=== PATIENT | female | born 1935 | race Caucasian/White ===

== ENCOUNTER 2017-03-20 09:07 | Day surgery (SDC) | payer MEDICARE ==
[~2017-03-20] VITALS: Ht 160 cm; Wt 63.0 kg
[~2017-03-20 09:07] MED LIST: ALEN70 PO; ALPHA LIPOIC ACID PO; ASCO500; ASPI325 PO; Bactrim Ds Tab1 EACH PO; CHOL10002 PO; ELIQUIS5 MG PO; Ferrous Sulfat325 M2 PO; HYDCHL25 PO; INSLI100I SC; INSULANI SC; INSULANPEN SC; IRBE150 PO; NEBI5 PO; Neurontin300 MG PO; Novolog100 UNIT/2 SC; PIOG30 PO; SIMV40 PO; SITA100T2 PO; TRAM50 PO; TRAZ50 PO; XARELTO20 MG PO
[2017-05-23] MEDS ORDERED: Pataday2.5 ML BOTHEYES (10:42)
== END 2017-03-20 23:59 | disposition home or self-care (01) ==
LOC: ORSCMMR 09:07
PROVIDERS: Internal Medicine Gastroenterology
PROC: 0DBP8ZX Excision of Rectum, Via Natural or Artificial Opening Endoscopic, Diagnostic (ICD-10-PCS; principal; 2017-03-20 10:30)
PROC: 3E0H8GC Introduction of Other Therapeutic Substance into Lower GI, Via Natural or Artificial Opening Endoscopic (ICD-10-PCS; principal; 2017-03-20 10:30)
PROC: 0DBM8ZX Excision of Descending Colon, Via Natural or Artificial Opening Endoscopic, Diagnostic (ICD-10-PCS; principal; 2017-03-20 10:30)
PROC: 0DB98ZX Excision of Duodenum, Via Natural or Artificial Opening Endoscopic, Diagnostic (ICD-10-PCS; principal; 2017-03-20 10:30)
PROC: 0DB68ZX Excision of Stomach, Via Natural or Artificial Opening Endoscopic, Diagnostic (ICD-10-PCS; principal; 2017-03-20 10:30)
DX: D50.0 Iron deficiency anemia secondary to blood loss (chronic) (principal); K29.80 Duodenitis without bleeding; K44.9 Diaphragmatic hernia without obstruction or gangrene; K62.1 Rectal polyp; C18.6 Malignant neoplasm of descending colon; Z86.010 Personal history of colon polyps; I48.0 Paroxysmal atrial fibrillation; I10 Essential (primary) hypertension; E11.9 Type 2 diabetes mellitus without complications; Z79.4 Long term (current) use of insulin; Z79.899 Other long term (current) drug therapy
CPT/HCPCS: 82947; 88305; 88342; J2250; J3010; J7120

== ENCOUNTER 2017-04-06 15:55 | Inpatient (IN) | payer MEDICARE ==
[~2017-04-06] VITALS: Ht 165.1 cm; Wt 61.2 kg
[2017-04-16] MEDS ORDERED: ALPHA LIPOIC A200 M1 PO (10:11)
[2017-04-16] MEDS ORDERED: NEBI5 PO (10:13)
[2017-04-16] MEDS ORDERED: FERROUS SULFATE PO (10:17)
[2017-04-16] MEDS ORDERED: ALEN70 PO (10:18)
[2017-04-16] MEDS ORDERED: GABA300 PO (10:18)
[2017-04-16] MEDS ORDERED: Humalog100 UNIT/1 SC (10:19)
[2017-04-16] MEDS ORDERED: SITA100T2 PO (10:20)
[2017-04-16] MEDS ORDERED: INSULANPEN SC (10:20)
[2017-04-16] MEDS ORDERED: SIMV40 PO (10:20)
[2017-04-16] MEDS ORDERED: TRAM50 PO (10:21)
[2017-04-16] MEDS ORDERED: Tylenol325 MG PO (10:22)
[2017-04-16] MEDS ORDERED: Desyrel50 MG PO (10:22)
[2017-04-16] MEDS ORDERED: Vitamin C100 M1 PO (10:23)
[2017-04-16] MEDS ORDERED: Vitamin D2000 UNIT PO (10:23)
[2017-04-25 04:53] LABS: BASOPHILS ABSOLUTE AUTO 0.02 K/mm3 (0.00-0.23); BASOPHILS PERCENT AUTO 0 % (0-2); EOSINOPHILS PERCENT AUTO 0 % (0-6); Hematocrit 34.3 % (33.0-51.0); Hemoglobin 10.7 g/dL (11.5-16.0); IMMATURE GRAN ABSOLUTE AUTO 0.04 K/mm3 (0.00-0.10); IMMATURE GRAN PERCENT AUTO 0 % (0-1); LYMPHOCYTES ABSOLUTE AUTO 1.45 K/mm3 (0.84-5.20); LYMPHOCYTES PERCENT AUTO 11 % (21-46); MONOCYTES ABSOLUTE AUTO 1.32 K/mm3 (0.16-1.47); MONOCYTES PERCENT AUTO 10 % (4-13); Mean Corpuscular HGB 26.8 pg (26.0-34.0); Mean Corpuscular HGB Conc 31.2 g/dL (31.5-36.5); Mean Corpuscular Volume 86 fL (80-100); Mean Platelet Volume 11.7 fL (9.1-12.4); NEUTROPHILS ABSOLUTE AUTO 10.42 K/mm3 (1.96-9.15); NEUTROPHILS PERCENT AUTO 79 % (41-73); Platelet Count 166 K/mm3 (150-400); RDW Coefficient Variation 16.5 % (11.7-14.2); RDW Standard Deviation 52.1 fL (35.1-46.3); Red Blood Cell Count 3.99 M/mm3 (3.80-5.20); White Blood Cell Count 13.25 K/mm3 (4.00-11.30)
[2017-04-25 05:24] LABS: Anion Gap 9 mmol/L (6-16); Blood Urea Nitrogen 17 mg/dL (8-24); CO2, Blood 26 mmol/L (21-32); Calcium, Blood 7.7 mg/dL (8.5-10.1); Chloride, Blood 106 mmol/L (98-108); Creatinine, Blood 0.68 mg/dL (0.40-1.00); Glomerular Filtration Rate >60 (60-); Glucose, Blood 222 mg/dL (70-99); Potassium, Blood 4.1 mmol/L (3.5-5.5); Sodium, Blood 141 mmol/L (136-145)
[2017-04-27 15:13] LABS: Hematocrit 30.9 % (33.0-51.0); Hemoglobin 9.6 g/dL (11.5-16.0)
[2017-04-29 09:36] LABS: BASOPHILS ABSOLUTE AUTO 0.02 K/mm3 (0.00-0.23); BASOPHILS PERCENT AUTO 0 % (0-2); EOSINOPHILS ABSOLUTE AUTO 0.25 K/mm3 (0.00-0.68); EOSINOPHILS PERCENT AUTO 3 % (0-6); Hemoglobin 8.3 g/dL (11.5-16.0); IMMATURE GRAN ABSOLUTE AUTO 0.04 K/mm3 (0.00-0.10); IMMATURE GRAN PERCENT AUTO 1 % (0-1); LYMPHOCYTES ABSOLUTE AUTO 1.53 K/mm3 (0.84-5.20); LYMPHOCYTES PERCENT AUTO 20 % (21-46); MONOCYTES ABSOLUTE AUTO 0.64 K/mm3 (0.16-1.47); MONOCYTES PERCENT AUTO 8 % (4-13); Mean Corpuscular HGB 26.9 pg (26.0-34.0); Mean Corpuscular HGB Conc 30.7 g/dL (31.5-36.5); Mean Corpuscular Volume 87 fL (80-100); Mean Platelet Volume 10.9 fL (9.1-12.4); NEUTROPHILS ABSOLUTE AUTO 5.18 K/mm3 (1.96-9.15); NEUTROPHILS PERCENT AUTO 68 % (41-73); Platelet Count 171 K/mm3 (150-400); RDW Coefficient Variation 16.1 % (11.7-14.2); Red Blood Cell Count 3.09 M/mm3 (3.80-5.20); White Blood Cell Count 7.66 K/mm3 (4.00-11.30)
[2017-04-29 09:53] LABS: Anion Gap 6 mmol/L (6-16); Blood Urea Nitrogen 16 mg/dL (8-24); Bun/Creatinine Ratio 26.7 (12.0-20.0); CO2, Blood 31 mmol/L (21-32); Calcium, Blood 8.4 mg/dL (8.5-10.1); Chloride, Blood 104 mmol/L (98-108); Glomerular Filtration Rate >60 (60-); Glucose, Blood 155 mg/dL (70-99); Magnesium, Blood 1.8 mg/dL (1.6-2.4); Phosphorus, Blood 4.1 mg/dL (2.5-4.9); Potassium, Blood 3.8 mmol/L (3.5-5.5); Sodium, Blood 141 mmol/L (136-145)
[2017-04-29] MEDS ORDERED: HYDR1TAB94 PO (12:37)
[2017-04-29] MEDS ORDERED: DOCU100 PO (12:41)
[2017-05-23] MEDS ORDERED: Pataday2.5 ML BOTHEYES (10:42)
== END 2017-04-29 14:04 | disposition home or self-care (01) | DRG 330 ==
LOC: SURS 04-24 07:36 → PRE IP 04-24 09:30 → SURS 04-24 13:47
PROVIDERS: Surgery
PROC: 3E0234Z Introduction of Serum, Toxoid and Vaccine into Muscle, Percutaneous Approach (ICD-10-PCS; 2017-04-24)
PROC: 0DTG0ZZ Resection of Left Large Intestine, Open Approach (ICD-10-PCS; principal; 2017-04-24 09:30)
DX: C18.5 Malignant neoplasm of splenic flexure (principal); R44.3 Hallucinations, unspecified; I48.0 Paroxysmal atrial fibrillation; E11.9 Type 2 diabetes mellitus without complications; G89.29 Other chronic pain; M54.5 Low back pain; I10 Essential (primary) hypertension; E78.5 Hyperlipidemia, unspecified; Z23 Encounter for immunization; R33.9 Retention of urine, unspecified
CPT/HCPCS: 36415; 74018; 80048; 82947; 83735; 84100; 85014; 85018; 85025; 88309; J0295; J1100; J1650; J1815; J1817; J1885; J2250; J2370; J2405; J2710; J3010; J7120

== ENCOUNTER 2017-05-25 06:40 | Day surgery (SDC) | END 2017-05-25 23:28 | disposition home or self-care (01) ==

== ENCOUNTER → 2017-06-26 | Outpatient (CLI) | payer MEDICARE ==
[~2017-06-26] MED LIST changes: +ALPHA LIPOIC A200 M1 PO; +DOCU100 PO; +Desyrel50 MG PO; +FERROUS SULFATE PO; +GABA300 PO; +HYDR1TAB94 PO; +Humalog100 UNIT/1 SC; +Pataday2.5 ML BOTHEYES; +Tylenol325 MG PO; +Vitamin C100 M1 PO; +Vitamin D2000 UNIT PO
[2017-06-26 11:22] LABS: BASOPHILS ABSOLUTE AUTO 0.02 K/mm3 (0.00-0.23); BASOPHILS PERCENT AUTO 0 % (0-2); EOSINOPHILS ABSOLUTE AUTO 0.06 K/mm3 (0.00-0.68); EOSINOPHILS PERCENT AUTO 1 % (0-6); Hematocrit 36.8 % (33.0-51.0); Hemoglobin 11.6 g/dL (11.5-16.0); IMMATURE GRAN ABSOLUTE AUTO 0.01 K/mm3 (0.00-0.10); IMMATURE GRAN PERCENT AUTO 0 % (0-1); LYMPHOCYTES ABSOLUTE AUTO 0.79 K/mm3 (0.84-5.20); LYMPHOCYTES PERCENT AUTO 12 % (21-46); MONOCYTES ABSOLUTE AUTO 0.85 K/mm3 (0.16-1.47); MONOCYTES PERCENT AUTO 13 % (4-13); Mean Corpuscular HGB 28.8 pg (26.0-34.0); Mean Corpuscular HGB Conc 31.5 g/dL (31.5-36.5); Mean Corpuscular Volume 91 fL (80-100); Mean Platelet Volume 11.7 fL (9.1-12.4); NEUTROPHILS ABSOLUTE AUTO 4.74 K/mm3 (1.96-9.15); NEUTROPHILS PERCENT AUTO 73 % (41-73); Platelet Count 113 K/mm3 (150-400); RDW Coefficient Variation 16.1 % (11.7-14.2); RDW Standard Deviation 52.9 fL (35.1-46.3); Red Blood Cell Count 4.03 M/mm3 (3.80-5.20); White Blood Cell Count 6.47 K/mm3 (4.00-11.30)
[2017-06-26 11:33] LABS: Alanine Aminotransfer (ALT/SGP 15 U/L (12-78); Albumin, Blood 2.8 g/dL (3.4-5.0); Albumin/Globulin Ratio 0.9 (0.8-1.8); Alk Phos 60 U/L (50-136); Anion Gap 5 mmol/L (6-16); Aspartate Aminotrans (AST/SGOT 12 U/L (12-37); Bilirubin, Total 0.3 mg/dL (0.1-1.0); Blood Urea Nitrogen 15 mg/dL (8-24); Bun/Creatinine Ratio 25.3 (12.0-20.0); CO2, Blood 32 mmol/L (21-32); Calcium, Blood 8.3 mg/dL (8.5-10.1); Chloride, Blood 104 mmol/L (98-108); Creatinine, Blood 0.59 mg/dL (0.40-1.00); Globulin, Blood 3.2 g/dL (2.2-4.0); Glomerular Filtration Rate >60 (60-); Glucose, Blood 222 mg/dL (70-99); Potassium, Blood 4.4 mmol/L (3.5-5.5); Sodium, Blood 141 mmol/L (136-145)
== END | disposition home or self-care (01) ==
LOC: LAB 10:53 → LAB SHORT 10:53
PROVIDERS: Internal Medicine Hematology & Oncology
DX: C18.6 Malignant neoplasm of descending colon (principal); C77.2 Secondary and unspecified malignant neoplasm of intra-abdominal lymph nodes; D50.9 Iron deficiency anemia, unspecified
CPT/HCPCS: 80053; 85025

== ENCOUNTER 2017-08-30 09:54 | Emergency (ER) | payer MEDICARE ==
[~2017-08-30] VITALS: Ht 157.5 cm; Wt 58.1 kg
== END 2017-08-30 10:30 | disposition home or self-care (01) ==
LOC: ER 09:54
DX: S61.012A Laceration without foreign body of left thumb without damage to nail, initial encounter (principal); W31.89XA Contact with other specified machinery, initial encounter; Z88.8 Allergy status to other drugs, medicaments and biological substances; Z79.899 Other long term (current) drug therapy; Z79.4 Long term (current) use of insulin; E11.9 Type 2 diabetes mellitus without complications; I10 Essential (primary) hypertension; Z87.891 Personal history of nicotine dependence
CPT/HCPCS: 90714; 99282

== ENCOUNTER → 2017-11-14 | Outpatient (CLI) | payer MEDICARE ==
[2017-11-15 10:17] LABS: Adenovirus F 40/41 Not Detected (NOT DETECT); Astrovirus Not Detected (NOT DETECT); Campylobacter Sp Not Detected (NOT DETECT); Cryptosporidium Not Detected (NOT DETECT); Cyclospora Cayetanensis Not Detected (NOT DETECT); E. Coli O157 Not Detected (NOT DETECT); Entamoeba Histolytica Not Detected (NOT DETECT); Enteroaggregative E. coli-EAEC Not Detected (NOT DETECT); Enteropathogenic E. coli-EPEC Not Detected (NOT DETECT); Enterotoxigenic E. coli-ETEC Not Detected (NOT DETECT); Giardia Lamblia Not Detected (NOT DETECT); Norovirus GI/GII Not Detected (NOT DETECT); Plesiomonas Shigelloides Not Detected (NOT DETECT); Rotavirus A Not Detected (NOT DETECT); Salmonella Sp Not Detected (NOT DETECT); Sapovirus Not Detected (NOT DETECT); Shiga Toxin-prod E. coli-STEC Not Detected (NOT DETECT); Shigella/Enteroin E. coli-EIEC Not Detected (NOT DETECT); Vibrio Cholerae Not Detected (NOT DETECT); Vibrio Sp Not Detected (NOT DETECT); Yersinia Enterocolitica Not Detected (NOT DETECT)
== END ==
LOC: LAB EV 02:00
PROVIDERS: Physician Assistant
DX: R19.7 Diarrhea, unspecified (principal)
CPT/HCPCS: 87507

== ENCOUNTER → 2017-11-22 | Outpatient (CLI) | payer MEDICARE | LOC: LAB EV 15:50 → LAB SHORT 15:50 | DX: N30.01 Acute cystitis with hematuria (principal) | CPT/HCPCS: 87086 ==

== ENCOUNTER 2018-09-01 16:00 | Emergency (ER) | payer MEDICARE ==
[~2018-09-01] VITALS: Ht 162.6 cm; Wt 59.0 kg
== END 2018-09-01 18:39 | disposition home or self-care (01) ==
LOC: ER 16:00
DX: S32.019A Unspecified fracture of first lumbar vertebra, initial encounter for closed fracture (principal); K59.00 Constipation, unspecified; E11.9 Type 2 diabetes mellitus without complications; I10 Essential (primary) hypertension; Z79.899 Other long term (current) drug therapy; Z79.01 Long term (current) use of anticoagulants; Z79.4 Long term (current) use of insulin; Z88.8 Allergy status to other drugs, medicaments and biological substances; Z87.891 Personal history of nicotine dependence; Z86.73 Personal history of transient ischemic attack (TIA), and cerebral infarction without residual deficits; W11.XXXA Fall on and from ladder, initial encounter
CPT/HCPCS: 70450; 72100; 99284-25

== ENCOUNTER 2021-03-14 09:33 | Emergency (ER) | payer MEDICARE ==
[~2021-03-14] VITALS: Ht 170.2 cm; Wt 66.2 kg
[2021-03-14] MEDS ORDERED: Cyclobenzaprine5 MG PO (13:45)
[2021-03-14] MEDS ORDERED: HYDR1TAB94 PO (13:45)
== END 2021-03-14 14:03 | disposition home or self-care (01) ==
LOC: ER 09:33
DX: M54.2 Cervicalgia (principal); I10 Essential (primary) hypertension; E11.40 Type 2 diabetes mellitus with diabetic neuropathy, unspecified; Z87.891 Personal history of nicotine dependence; Z79.899 Other long term (current) drug therapy
CPT/HCPCS: 71045; 72040; 99283-25; A9270

== ENCOUNTER 2021-12-04 16:51 | Emergency (ER) | payer MEDICARE ==
[~2021-12-04] VITALS: Ht 167.6 cm; Wt 65.3 kg
[~2021-12-04 16:51] MED LIST changes: +Cyclobenzaprine5 MG PO
[2021-12-04] MEDS ORDERED: HYDR1TAB94 PO (19:22)
== END 2021-12-04 20:59 | disposition home or self-care (01) ==
LOC: ER 16:51
DX: S42.302A Unspecified fracture of shaft of humerus, left arm, initial encounter for closed fracture (principal); S52.572A Other intraarticular fracture of lower end of left radius, initial encounter for closed fracture; S09.90XA Unspecified injury of head, initial encounter; M54.2 Cervicalgia; W08.XXXA Fall from other furniture, initial encounter; D68.8 Other specified coagulation defects; I48.0 Paroxysmal atrial fibrillation; E11.40 Type 2 diabetes mellitus with diabetic neuropathy, unspecified; I10 Essential (primary) hypertension; Z88.8 Allergy status to other drugs, medicaments and biological substances; Z79.899 Other long term (current) drug therapy; Z79.4 Long term (current) use of insulin; Z79.01 Long term (current) use of anticoagulants; Z87.891 Personal history of nicotine dependence
CPT/HCPCS: 70450; 72125; 73060; 73110; A9270; J3010

== ENCOUNTER 2022-01-17 19:12 | Inpatient (IN) | payer MEDICARE ==
[~2022-01-17] VITALS: Ht 152.4 cm; Wt 62.6 kg
[2022-01-17 19:39] LABS: BASOPHILS ABSOLUTE AUTO 0.04 K/mm3 (0.00-0.23); BASOPHILS PERCENT AUTO 1 % (0-2); EOSINOPHILS ABSOLUTE AUTO 0.02 K/mm3 (0.00-0.68); EOSINOPHILS PERCENT AUTO 0 % (0-6); Hematocrit 42.6 % (33.0-51.0); Hemoglobin 13.9 g/dL (11.5-16.0); IMMATURE GRAN ABSOLUTE AUTO 0.03 K/mm3 (0.00-0.10); IMMATURE GRAN PERCENT AUTO 0 % (0-1); LYMPHOCYTES ABSOLUTE AUTO 1.04 K/mm3 (0.84-5.20); LYMPHOCYTES PERCENT AUTO 12 % (21-46); MONOCYTES ABSOLUTE AUTO 0.92 K/mm3 (0.16-1.47); MONOCYTES PERCENT AUTO 11 % (4-13); Mean Corpuscular HGB Conc 32.6 g/dL (31.5-36.5); Mean Corpuscular Volume 95 fL (80-100); NEUTROPHILS ABSOLUTE AUTO 6.67 K/mm3 (1.96-9.15); NEUTROPHILS PERCENT AUTO 77 % (41-73); Platelet Count 173 K/mm3 (150-400); RDW Standard Deviation 45.5 fL (35.1-46.3); Red Blood Cell Count 4.49 M/mm3 (3.80-5.20); White Blood Cell Count 8.72 K/mm3 (4.00-11.30)
[2022-01-17 19:59] LABS: Albumin, Blood 3.4 g/dL (3.4-5.0); Albumin/Globulin Ratio 0.9 (0.8-1.8); Bilirubin, Total 0.6 mg/dL (0.1-1.0); Bun/Creatinine Ratio 17.3 (12.0-20.0); Calcium, Blood 9.3 mg/dL (8.5-10.1); Creatinine, Blood 0.7 mg/dL (0.40-1.00); Globulin, Blood 3.8 g/dL (2.2-4.0); Potassium, Blood 3.6 mmol/L (3.5-5.5); Total Protein, Blood 7.2 g/dL (6.4-8.2)
[2022-01-17 20:27] LABS: International Normalized Ratio 1.14; Prothrombin Time Results 11.9 Sec (9.7-11.5)
[2022-01-17 20:41] LABS: Thyroid Stimulating Hormone 0.946 uIU/mL (0.360-4.800)
[2022-01-17 21:16] LABS: Influenza A, PCR NEGATIVE (NEGATIVE); Influenza B, PCR NEGATIVE (NEGATIVE); Resp Syncytial Virus, PCR NEGATIVE (NEGATIVE); SARS-Cov-2 (COVID-19) PCR, MMC NEGATIVE (NEGATIVE)
[2022-01-17 21:52] LABS: Source, Urine Straight Cath
[2022-01-17 23:04] LABS: Appearance, Urine Clear (Clear); Bilirubin, Urine Neg (Neg); Blood, Urine Neg (Neg); Color, Urine Yellow (P-Yellow); Glucose Qualitative, Urine 1+ (Neg); Ketones, Urine Neg (Neg); Leukocyte Esterase, Urine 1+ (Neg); Nitrite, Urine Neg (Neg); Protein, Urine 1+ (Neg); Specific Gravity, Urine 1.005 (1.003-1.022); Urobilinogen, Urine NORM (Normal)
[2022-01-17 23:29] LABS: Amorphous Light (0-Heavy); Bacteria Rare /hpf; Red Blood Cells, Urine 0-2 /hpf (0-2); Squamous Epithelial Cells Rare /hpf (Few); White Blood Cells, Urine 0-2 /hpf (0-5)
--- NOTE | 2022-01-18 04:34 | NUR ---
SHIFT SUMMARY PT HAS NO COMPLAINTS AT THIS TIME. PT APPEARED TO BE MILDLY CONFUSED UPON ARRIVAL, THINKING THE TOPSTITCHER LOCKSTITCH WAS HER DAUGHTER IN LAW. ALSO WHEN ASKED, PT GAVE US THE WRONG , HOWEVER AFTER ASKING HER SEVERAL TIMES, SHE REALIZED SHE HAD GIVEN US HER DAUGHTER IN LAWS INSTEAD OF HERS. PT WAS ABLE TO FINALLY GIVE US HER CORRECT . PT 1 PERSON ASSIST TO BEDSIDE COMMODE. PT HAS CALL LIGHT WITHIN REACH AND VERBALIZED UNDERSTANDING OF HOW TO USE IT. PT APPEARS TO HAVE BEEN SLEEPING MUCH OF THE NIGHT.
[2022-01-18 06:12] LABS: Bun/Creatinine Ratio 22.9 (12.0-20.0); Calcium, Blood 9.4 mg/dL (8.5-10.1); Creatinine, Blood 0.52 mg/dL (0.40-1.00); Potassium, Blood 3.7 mmol/L (3.5-5.5)
== END 2022-01-18 16:08 | disposition home health service (06) | DRG 189 ==
LOC: ER 19:12 → MEDS 22:39
PROVIDERS: Student in an Organized Health Care Education/Training Program; ADMIT Internal Medicine
DX: J96.01 Acute respiratory failure with hypoxia (principal); I69.351 Hemiplegia and hemiparesis following cerebral infarction affecting right dominant side; Z20.822 Contact with and (suspected) exposure to COVID-19; I48.0 Paroxysmal atrial fibrillation; I10 Essential (primary) hypertension; E05.90 Thyrotoxicosis, unspecified without thyrotoxic crisis or storm; E11.40 Type 2 diabetes mellitus with diabetic neuropathy, unspecified; J20.9 Acute bronchitis, unspecified; Z90.49 Acquired absence of other specified parts of digestive tract; Z98.890 Other specified postprocedural states; Z87.891 Personal history of nicotine dependence; I69.320 Aphasia following cerebral infarction; Z85.038 Personal history of other malignant neoplasm of large intestine; Z88.8 Allergy status to other drugs, medicaments and biological substances; Z79.4 Long term (current) use of insulin; Z79.01 Long term (current) use of anticoagulants; Z79.899 Other long term (current) drug therapy
CPT/HCPCS: 0241U; 36415; 70450; 71045; 80048; 80053; 81001; 83605; 83735; 83880; 84443; 84484; 85025; 85610; 93005; 93010; 93306; 96365; 96375; 99285-25; A9270; J0696; J1940

== ENCOUNTER 2022-06-09 17:36 | Emergency (ER) | payer MEDICARE ==
[~2022-06-09] VITALS: Ht 170.2 cm; Wt 67.6 kg
[2022-06-09 18:50] LABS: BASOPHILS ABSOLUTE AUTO 0.06 K/mm3 (0.00-0.23); BASOPHILS PERCENT AUTO 1 % (0-2); EOSINOPHILS ABSOLUTE AUTO 0.05 K/mm3 (0.00-0.68); EOSINOPHILS PERCENT AUTO 1 % (0-6); Hematocrit 46.3 % (33.0-51.0); Hemoglobin 15.4 g/dL (11.5-16.0); IMMATURE GRAN ABSOLUTE AUTO 0.03 K/mm3 (0.00-0.10); IMMATURE GRAN PERCENT AUTO 0 % (0-1); LYMPHOCYTES PERCENT AUTO 15 % (21-46); MONOCYTES ABSOLUTE AUTO 0.87 K/mm3 (0.16-1.47); MONOCYTES PERCENT AUTO 8 % (4-13); Mean Corpuscular HGB 31.5 pg (26.0-34.0); Mean Corpuscular HGB Conc 33.3 g/dL (31.5-36.5); Mean Corpuscular Volume 95 fL (80-100); Mean Platelet Volume 10.2 fL (9.1-12.4); NEUTROPHILS ABSOLUTE AUTO 8.32 K/mm3 (1.96-9.15); NEUTROPHILS PERCENT AUTO 76 % (41-73); Platelet Count 221 K/mm3 (150-400); RDW Coefficient Variation 13.2 % (11.7-14.2); RDW Standard Deviation 46.2 fL (35.1-46.3); Red Blood Cell Count 4.89 M/mm3 (3.80-5.20); White Blood Cell Count 10.93 K/mm3 (4.00-11.30)
[2022-06-09 19:08] LABS: Ethanol (Alcohol), Blood, Med <3 mg/dL; Salicylate 2.7 mg/dL (2.8-20.0)
[2022-06-09 19:10] LABS: Acetaminophen, Random <2.0 ug/mL (10.0-30.0); Alanine Aminotransfer (ALT/SGP 16 U/L (12-78); Albumin, Blood 3.6 g/dL (3.4-5.0); Albumin/Globulin Ratio 0.9 (0.8-1.8); Alk Phos 77 U/L (50-136); Anion Gap 1 mmol/L (6-16); Aspartate Aminotrans (AST/SGOT 16 U/L (12-37); Bilirubin, Total 0.4 mg/dL (0.1-1.0); Blood Urea Nitrogen 16 mg/dL (8-24); Bun/Creatinine Ratio 21.8 (12.0-20.0); CO2, Blood 34 mmol/L (21-32); Calcium, Blood 9.3 mg/dL (8.5-10.1); Chloride, Blood 102 mmol/L (98-108); Creatinine, Blood 0.74 mg/dL (0.40-1.00); Globulin, Blood 4.2 g/dL (2.2-4.0); Glomerular Filtration Rate 79 (60-); Glucose, Blood 188 mg/dL (70-99); Potassium, Blood 4.2 mmol/L (3.5-5.5); Sodium, Blood 137 mmol/L (136-145); Total Protein, Blood 7.8 g/dL (6.4-8.2)
== END 2022-06-09 21:54 | disposition home or self-care (01) ==
LOC: ER 17:36
PROVIDERS: Physician Assistant
DX: R45.1 Restlessness and agitation (principal); I10 Essential (primary) hypertension; E11.9 Type 2 diabetes mellitus without complications; I48.91 Unspecified atrial fibrillation; Z79.01 Long term (current) use of anticoagulants; Z79.899 Other long term (current) drug therapy; Z79.4 Long term (current) use of insulin
CPT/HCPCS: 36415; 80053; 85025; 93005; 93010; 99285-25; G0480

== ENCOUNTER 2022-09-18 15:01 | Emergency (ER) | payer MEDICARE ==
[~2022-09-18] VITALS: Ht 152.4 cm; Wt 61.2 kg
[2022-09-18 15:35] LABS: Source, Urine Clean Catch
[2022-09-18 15:40] LABS: Appearance, Urine Cloudy (Clear); Bilirubin, Urine Neg (Neg); Blood, Urine 2+ (Neg); Color, Urine Yellow (P-Yellow); Glucose Qualitative, Urine Neg (Neg); Ketones, Urine Neg (Neg); Leukocyte Esterase, Urine 3+ (Neg); Nitrite, Urine Pos (Neg); Protein, Urine 2+ (Neg); Specific Gravity, Urine 1.025 (1.003-1.022); Urobilinogen, Urine NORM (Normal)
[2022-09-18 15:52] LABS: BASOPHILS ABSOLUTE AUTO 0.05 K/mm3 (0.00-0.23); BASOPHILS PERCENT AUTO 1 % (0-2); EOSINOPHILS ABSOLUTE AUTO 0.12 K/mm3 (0.00-0.68); EOSINOPHILS PERCENT AUTO 1 % (0-6); Hematocrit 46.2 % (33.0-51.0); Hemoglobin 14.9 g/dL (11.5-16.0); IMMATURE GRAN ABSOLUTE AUTO 0.03 K/mm3 (0.00-0.10); IMMATURE GRAN PERCENT AUTO 0 % (0-1); LYMPHOCYTES ABSOLUTE AUTO 2.91 K/mm3 (0.84-5.20); LYMPHOCYTES PERCENT AUTO 31 % (21-46); MONOCYTES PERCENT AUTO 11 % (4-13); Mean Corpuscular HGB 30.8 pg (26.0-34.0); Mean Corpuscular HGB Conc 32.3 g/dL (31.5-36.5); Mean Corpuscular Volume 96 fL (80-100); Mean Platelet Volume 10.4 fL (9.1-12.4); NEUTROPHILS ABSOLUTE AUTO 5.31 K/mm3 (1.96-9.15); NEUTROPHILS PERCENT AUTO 56 % (41-73); Platelet Count 191 K/mm3 (150-400); RDW Coefficient Variation 12.8 % (11.7-14.2); RDW Standard Deviation 45.4 fL (35.1-46.3); Red Blood Cell Count 4.83 M/mm3 (3.80-5.20); White Blood Cell Count 9.42 K/mm3 (4.00-11.30)
[2022-09-18 15:54] LABS: Bacteria Many /hpf; Mucus Light (0-Heavy); Red Blood Cells, Urine 0-2 /hpf (0-2); Squamous Epithelial Cells Rare /hpf (Few); White Blood Cells, Urine TNTC /hpf (0-5)
[2022-09-18 16:03] LABS: Albumin, Blood 3.4 g/dL (3.4-5.0); Albumin/Globulin Ratio 0.9 (0.8-1.8); Bilirubin, Total 0.3 mg/dL (0.1-1.0); Bun/Creatinine Ratio 28.5 (12.0-20.0); Calcium, Blood 9.4 mg/dL (8.5-10.1); Creatinine, Blood 0.77 mg/dL (0.40-1.00); Globulin, Blood 3.7 g/dL (2.2-4.0); Potassium, Blood 3.5 mmol/L (3.5-5.5); Total Protein, Blood 7.1 g/dL (6.4-8.2)
[2022-09-18] MEDS ORDERED: CEPH500 PO (16:52)
[2022-09-18 17:00] VITALS: BP 135/78
== END 2022-09-18 17:08 | disposition home or self-care (01) ==
LOC: ER 15:01
PROVIDERS: Student in an Organized Health Care Education/Training Program
DX: N39.0 Urinary tract infection, site not specified (principal); E11.9 Type 2 diabetes mellitus without complications; I10 Essential (primary) hypertension; Z79.4 Long term (current) use of insulin; Z79.01 Long term (current) use of anticoagulants; Z79.899 Other long term (current) drug therapy; Z88.8 Allergy status to other drugs, medicaments and biological substances; Z86.73 Personal history of transient ischemic attack (TIA), and cerebral infarction without residual deficits; Z87.891 Personal history of nicotine dependence
CPT/HCPCS: 80053; 81001; 83690; 85025; 99284; A9270

== ENCOUNTER 2022-09-30 14:20 | Emergency (ER) | payer MEDICARE ==
[~2022-09-30] VITALS: Ht 170.2 cm; Wt 60.8 kg
[~2022-09-30 14:20] MED LIST changes: +CEPH500 PO
[2022-09-30 14:24] VITALS: BP 118/75
[2022-09-30 14:46] LABS: Source, Urine Clean Catch
[2022-09-30 14:53] LABS: Bilirubin, Urine Neg (Neg); Blood, Urine Neg (Neg); Color, Urine Yellow (P-Yellow); Glucose Qualitative, Urine Neg (Neg); Ketones, Urine Neg (Neg); Leukocyte Esterase, Urine 1+ (Neg); Nitrite, Urine Neg (Neg); Protein, Urine 2+ (Neg); Specific Gravity, Urine 1.025 (1.003-1.022); Urobilinogen, Urine NORM (Normal)
[2022-09-30 14:59] LABS: Appearance, Urine Hazy (Clear); BASOPHILS ABSOLUTE AUTO 0.03 K/mm3 (0.00-0.23); BASOPHILS PERCENT AUTO 0 % (0-2); EOSINOPHILS ABSOLUTE AUTO 0.07 K/mm3 (0.00-0.68); EOSINOPHILS PERCENT AUTO 1 % (0-6); Hemoglobin 15.3 g/dL (11.5-16.0); IMMATURE GRAN ABSOLUTE AUTO 0.02 K/mm3 (0.00-0.10); IMMATURE GRAN PERCENT AUTO 0 % (0-1); LYMPHOCYTES ABSOLUTE AUTO 1.57 K/mm3 (0.84-5.20); LYMPHOCYTES PERCENT AUTO 21 % (21-46); MONOCYTES ABSOLUTE AUTO 0.47 K/mm3 (0.16-1.47); MONOCYTES PERCENT AUTO 6 % (4-13); Mean Corpuscular HGB 30.8 pg (26.0-34.0); Mean Corpuscular HGB Conc 32.6 g/dL (31.5-36.5); Mean Corpuscular Volume 95 fL (80-100); Mean Platelet Volume 10.3 fL (9.1-12.4); NEUTROPHILS ABSOLUTE AUTO 5.43 K/mm3 (1.96-9.15); NEUTROPHILS PERCENT AUTO 72 % (41-73); Platelet Count 184 K/mm3 (150-400); RDW Coefficient Variation 12.7 % (11.7-14.2); RDW Standard Deviation 44.1 fL (35.1-46.3); Red Blood Cell Count 4.97 M/mm3 (3.80-5.20); White Blood Cell Count 7.59 K/mm3 (4.00-11.30)
[2022-09-30 15:01] LABS: Bacteria Mod /hpf; Hyaline Casts 0-2 /lpf (0-2); Mucus Light (0-Heavy); Red Blood Cells, Urine 0-2 /hpf (0-2); Squamous Epithelial Cells Few /hpf (Few)
[2022-09-30 15:13] LABS: Albumin, Blood 3.5 g/dL (3.4-5.0); Albumin/Globulin Ratio 0.9 (0.8-1.8); Bilirubin, Total 0.5 mg/dL (0.1-1.0); Bun/Creatinine Ratio 23.1 (12.0-20.0); Calcium, Blood 8.8 mg/dL (8.5-10.1); Creatinine, Blood 0.91 mg/dL (0.40-1.00); Globulin, Blood 4.1 g/dL (2.2-4.0); Potassium, Blood 4.2 mmol/L (3.5-5.5); Total Protein, Blood 7.6 g/dL (6.4-8.2)
[2022-09-30] MEDS ORDERED: Macrobid 100 M100 MG PO (16:09)
== END 2022-09-30 16:40 | disposition home or self-care (01) ==
LOC: ER 14:20
PROVIDERS: Student in an Organized Health Care Education/Training Program
DX: N39.0 Urinary tract infection, site not specified (principal); Z88.8 Allergy status to other drugs, medicaments and biological substances; Z79.4 Long term (current) use of insulin; Z79.899 Other long term (current) drug therapy; Z79.2 Long term (current) use of antibiotics; Z86.73 Personal history of transient ischemic attack (TIA), and cerebral infarction without residual deficits; I10 Essential (primary) hypertension; E11.40 Type 2 diabetes mellitus with diabetic neuropathy, unspecified; Z87.891 Personal history of nicotine dependence; Z79.01 Long term (current) use of anticoagulants
CPT/HCPCS: 80053; 81001; 83690; 85025; 87086; 99283; A9270

== ENCOUNTER 2022-11-25 17:16 | Emergency (ER) | payer MEDICARE ==
[~2022-11-25] VITALS: Ht 167.6 cm; Wt 63.5 kg
[~2022-11-25 17:16] MED LIST changes: +Macrobid 100 M100 MG PO
[2022-11-25 17:25] VITALS: BP 149/85
[2022-11-25 17:58] LABS: BASOPHILS ABSOLUTE AUTO 0.05 K/mm3 (0.00-0.23); BASOPHILS PERCENT AUTO 1 % (0-2); EOSINOPHILS ABSOLUTE AUTO 0.08 K/mm3 (0.00-0.68); EOSINOPHILS PERCENT AUTO 1 % (0-6); Hematocrit 42.9 % (33.0-51.0); Hemoglobin 14.3 g/dL (11.5-16.0); IMMATURE GRAN ABSOLUTE AUTO 0.01 K/mm3 (0.00-0.10); IMMATURE GRAN PERCENT AUTO 0 % (0-1); LYMPHOCYTES ABSOLUTE AUTO 1.95 K/mm3 (0.84-5.20); LYMPHOCYTES PERCENT AUTO 25 % (21-46); MONOCYTES ABSOLUTE AUTO 0.71 K/mm3 (0.16-1.47); MONOCYTES PERCENT AUTO 9 % (4-13); Mean Corpuscular HGB 31.3 pg (26.0-34.0); Mean Corpuscular HGB Conc 33.3 g/dL (31.5-36.5); Mean Corpuscular Volume 94 fL (80-100); Mean Platelet Volume 10.3 fL (9.1-12.4); NEUTROPHILS ABSOLUTE AUTO 4.87 K/mm3 (1.96-9.15); NEUTROPHILS PERCENT AUTO 64 % (41-73); Platelet Count 160 K/mm3 (150-400); RDW Coefficient Variation 13.1 % (11.7-14.2); RDW Standard Deviation 45.1 fL (35.1-46.3); Red Blood Cell Count 4.57 M/mm3 (3.80-5.20); White Blood Cell Count 7.67 K/mm3 (4.00-11.30)
[2022-11-25 18:22] LABS: Albumin, Blood 3.3 g/dL (3.4-5.0); Albumin/Globulin Ratio 0.9 (0.8-1.8); Bilirubin, Total 0.4 mg/dL (0.1-1.0); Bun/Creatinine Ratio 28.3 (12.0-20.0); Calcium, Blood 9.1 mg/dL (8.5-10.1); Creatinine, Blood 0.64 mg/dL (0.40-1.00); Globulin, Blood 3.8 g/dL (2.2-4.0); Potassium, Blood 3.7 mmol/L (3.5-5.5); Total Protein, Blood 7.1 g/dL (6.4-8.2)
== END 2022-11-25 23:00 | disposition home or self-care (01) ==
LOC: ER 17:16
PROVIDERS: Physician Assistant
DX: H57.12 Ocular pain, left eye (principal); E11.9 Type 2 diabetes mellitus without complications; I10 Essential (primary) hypertension; Z88.8 Allergy status to other drugs, medicaments and biological substances; Z79.899 Other long term (current) drug therapy; Z79.4 Long term (current) use of insulin; Z86.73 Personal history of transient ischemic attack (TIA), and cerebral infarction without residual deficits; Z79.01 Long term (current) use of anticoagulants; Z87.891 Personal history of nicotine dependence
CPT/HCPCS: 70450; 80053; 83690; 85025; 99285-25

== ENCOUNTER 2023-04-23 19:22 | Emergency (ER) | payer MEDICARE ==
[~2023-04-23] VITALS: Ht 170.2 cm; Wt 68.0 kg
[2023-04-23 20:23] VITALS: BP 174/132
== END 2023-04-23 20:31 | disposition home or self-care (01) ==
LOC: ER 19:22
DX: Z11.52 Encounter for screening for COVID-19 (principal); Z20.822 Contact with and (suspected) exposure to COVID-19; I48.0 Paroxysmal atrial fibrillation; E11.40 Type 2 diabetes mellitus with diabetic neuropathy, unspecified; I10 Essential (primary) hypertension; E05.90 Thyrotoxicosis, unspecified without thyrotoxic crisis or storm; I69.320 Aphasia following cerebral infarction; I69.351 Hemiplegia and hemiparesis following cerebral infarction affecting right dominant side; Z88.8 Allergy status to other drugs, medicaments and biological substances; Z79.899 Other long term (current) drug therapy; Z79.84 Long term (current) use of oral hypoglycemic drugs; Z79.4 Long term (current) use of insulin; Z79.01 Long term (current) use of anticoagulants; Z87.891 Personal history of nicotine dependence; Z85.038 Personal history of other malignant neoplasm of large intestine
CPT/HCPCS: 99281

== ENCOUNTER 2023-12-30 12:06 | Emergency (ER) | payer MEDICARE ==
[~2023-12-30] VITALS: Ht 170.2 cm; Wt 61.2 kg
[~2023-12-30 12:06] MED LIST changes: +NOVOLOG FL100 UNIT/3 SC
[2023-12-30 12:10] VITALS: BP 162/113
[2023-12-30] MEDS ORDERED: LIDO700A20 TOP (13:28)
[2023-12-30] MEDS ORDERED: Lidocaine 4% 1 Patch TOP ONE (13:30)
== END 2023-12-30 13:40 | disposition home or self-care (01) ==
LOC: ER 12:06
DX: S09.90XA Unspecified injury of head, initial encounter (principal); M54.50 Low back pain, unspecified; E11.9 Type 2 diabetes mellitus without complications; I10 Essential (primary) hypertension; F03.90 Unspecified dementia, unspecified severity, without behavioral disturbance, psychotic disturbance, mood disturbance, and anxiety; W07.XXXA Fall from chair, initial encounter; Z88.8 Allergy status to other drugs, medicaments and biological substances; Z79.4 Long term (current) use of insulin; Z79.01 Long term (current) use of anticoagulants; Z79.899 Other long term (current) drug therapy; Z86.73 Personal history of transient ischemic attack (TIA), and cerebral infarction without residual deficits
CPT/HCPCS: 70450; 72100; 99284-25; A9270

== ENCOUNTER → 2024-01-03 | Outpatient (CLI) | payer MEDICARE ==
[~2024-01-03] MED LIST changes: +LIDO700A20 TOP
== END | disposition home or self-care (01) ==
LOC: LAB SHORT 17:14 → LAB 17:14
DX: R82.998 Other abnormal findings in urine (principal)
CPT/HCPCS: 87086

== ENCOUNTER → 2024-04-03 | Outpatient (CLI) | payer MEDICARE ==
[2024-04-03 15:25] LABS: Source, Urine Voided
[2024-04-03 17:32] LABS: Appearance, Urine Clear (Clear); Bilirubin, Urine Neg (Neg); Blood, Urine Neg (Neg); Color, Urine Yellow (P-Yellow); Glucose Qualitative, Urine 4+ (Neg); Ketones, Urine Neg (Neg); Leukocyte Esterase, Urine Neg (Neg); Nitrite, Urine Neg (Neg); Protein, Urine Neg (Neg); Urobilinogen, Urine NORM (Normal)
== END ==
LOC: LAB 12:00 → LAB SHORT 12:00 → LAB FUT 03-21 16:40
PROVIDERS: Internal Medicine Endocrinology, Diabetes & Metabolism
DX: R35.0 Frequency of micturition (principal)
CPT/HCPCS: 81003; 87086

== ENCOUNTER 2024-05-23 16:18 | Emergency (ER) | payer OTHER, MEDICARE ==
[~2024-05-23] VITALS: Ht 170.2 cm; Wt 62.1 kg
[2024-05-23 19:22] VITALS: BP 139/89
== END 2024-05-23 20:21 | disposition home or self-care (01) ==
LOC: ER 16:18
DX: S70.02XA Contusion of left hip, initial encounter (principal); I10 Essential (primary) hypertension; E11.40 Type 2 diabetes mellitus with diabetic neuropathy, unspecified; W01.0XXA Fall on same level from slipping, tripping and stumbling without subsequent striking against object, initial encounter; Z86.73 Personal history of transient ischemic attack (TIA), and cerebral infarction without residual deficits; Z79.4 Long term (current) use of insulin; Z79.899 Other long term (current) drug therapy; Z88.8 Allergy status to other drugs, medicaments and biological substances
CPT/HCPCS: 72192; 73502; 99284-25

== ENCOUNTER 2024-05-26 02:48 | Emergency (ER) | payer MEDICARE ==
[~2024-05-26] VITALS: Ht 170.2 cm; Wt 62.1 kg
[2024-05-26] MEDS ORDERED: OxyCODONE 5 mg/Acetamin 325 mg TABLET PO ONE (06:35)
[2024-05-26 12:00] VITALS: BP 179/95
[2024-05-26] MEDS ORDERED: TraZODone HCl 100 MG Tab PO PRN (13:30)
[2024-05-26] MEDS ORDERED: HYDROcodone 5-APAP 325 TAB PO PRN (13:30)
[2024-05-26] MEDS ORDERED: Gabapentin 300 MG Cap PO PRN (13:35)
[2024-05-26] MEDS ORDERED: Carvedilol 3.125 MG Tab PO SCH (17:00)
[2024-05-26] MEDS ORDERED: Ascorbic Acid 500 MG Tab PO SCH (17:00)
[2024-05-26] MEDS ORDERED: DULoxetine HCL 30 MG Cap DR PO SCH (21:00)
[2024-05-26] MEDS ORDERED: Insulin Glargine-Yfgn 100 Unit/mL 3 ML SYR SC SCH (21:00)
[2024-05-26] MEDS ORDERED: Apixaban 5 MG Tab PO SCH (21:00)
[2024-05-27] MEDS ORDERED: Empagliflozin 10 MG TAB PO SCH (09:00)
[2024-05-27] MEDS ORDERED: Lidocaine 4% 1 Patch TOP SCH (09:00)
[2024-05-27] MEDS ORDERED: Cholecalciferol 1000 Unit Tablet (=25MCG) PO SCH (09:00)
== END 2024-05-26 14:15 ==
LOC: ER 02:48
DX: M80.88XA Other osteoporosis with current pathological fracture, vertebra(e), initial encounter for fracture (principal); E11.9 Type 2 diabetes mellitus without complications; I10 Essential (primary) hypertension; Z79.4 Long term (current) use of insulin; Z79.01 Long term (current) use of anticoagulants; Z79.899 Other long term (current) drug therapy
CPT/HCPCS: 71045; 72070; 72100; 93005; 93010; 97161; 97530; 99285-25; A9270; J1815

== ENCOUNTER 2024-05-29 21:33 | Inpatient (IN) | payer MEDICARE ==
[~2024-05-29] VITALS: Ht 162.6 cm; Wt 55.0 kg
[2024-05-29 22:55] LABS: BASOPHILS ABSOLUTE AUTO 0.06 K/mm3 (0.00-0.23); BASOPHILS PERCENT AUTO 1 % (0-2); EOSINOPHILS ABSOLUTE AUTO 0.11 K/mm3 (0.00-0.68); EOSINOPHILS PERCENT AUTO 1 % (0-6); Hematocrit 44.7 % (33.0-51.0); Hemoglobin 15.2 g/dL (11.5-16.0); IMMATURE GRAN ABSOLUTE AUTO 0.03 K/mm3 (0.00-0.10); IMMATURE GRAN PERCENT AUTO 0 % (0-1); LYMPHOCYTES ABSOLUTE AUTO 2.03 K/mm3 (0.84-5.20); LYMPHOCYTES PERCENT AUTO 22 % (21-46); MONOCYTES ABSOLUTE AUTO 0.95 K/mm3 (0.16-1.47); MONOCYTES PERCENT AUTO 10 % (4-13); Mean Corpuscular HGB 31.1 pg (26.0-34.0); Mean Corpuscular Volume 92 fL (80-100); NEUTROPHILS ABSOLUTE AUTO 6.14 K/mm3 (1.96-9.15); NEUTROPHILS PERCENT AUTO 66 % (41-73); Platelet Count 156 K/mm3 (150-400); RDW Coefficient Variation 12.6 % (11.7-14.2); RDW Standard Deviation 42.5 fL (35.1-46.3); Red Blood Cell Count 4.88 M/mm3 (3.80-5.20); White Blood Cell Count 9.32 K/mm3 (4.00-11.30)
[2024-05-29] MEDS ORDERED: LORazepam 2 MG/ML 1ML Injection IV ONE (22:55)
[2024-05-29 23:32] LABS: Free Thyroxine 1.22 ng/dL (0.70-1.60)
[2024-05-29 23:34] LABS: Albumin/Globulin Ratio 0.7 (0.8-1.8); Bilirubin, Total 0.6 mg/dL (0.1-1.0); Bun/Creatinine Ratio 33.9 (12.0-20.0); Calcium, Blood 9.2 mg/dL (8.5-10.1); Creatinine, Blood 0.56 mg/dL (0.40-1.00); Globulin, Blood 4.3 g/dL (2.2-4.0); Potassium, Blood 4.4 mmol/L (3.5-5.5); Thyroid Stimulating Hormone 0.332 uIU/mL (0.360-4.800); Total Protein, Blood 7.3 g/dL (6.4-8.2)
[2024-05-29 23:46] LABS: PCO2 Venous 18.9 mmHg (38-42)
[2024-05-29 23:47] LABS: Base Excess Venous -1.3 mmol/L; Bicarbonate Venous 25.1 mmol/L (24.0-30.0); pH Blood Venous 7.63 (7.34-7.37)
[2024-05-30 00:42] LABS: Source, Urine Straight Cath
[2024-05-30 00:49] LABS: Bilirubin, Urine Neg (Neg); Blood, Urine Neg (Neg); Glucose Qualitative, Urine 4+ (Neg); Ketones, Urine 1+ (Neg); Leukocyte Esterase, Urine Neg (Neg); Nitrite, Urine Neg (Neg); Protein, Urine Neg (Neg); Urobilinogen, Urine NORM (Normal)
[2024-05-30] MEDS ORDERED: Acetaminophen 325 MG TABLET PO PRN (01:05)
[2024-05-30] MEDS ORDERED: FLU VACC TS2024-25(6MOS UP)/PF 45 MCG/0.5 ML SYRINGE IM ONE (01:05)
[2024-05-30] MEDS ORDERED: Ondansetron 4 MG TAB PO PRN (01:05)
[2024-05-30] MEDS ORDERED: TraZODone HCl 50 MG Tab PO PRN (01:10)
[2024-05-30 01:29] LABS: U Amphetamine Screen Not Detected; U Barbituate Screen Not Detected; U Benzodiazapine Screen Not Detected; U Buprenorphine Screen Not Detected; U Cannabinoids Screen Not Detected; U Cocaine Screen Not Detected; U Methadone Screen Not Detected; U Methamphetamine Screen Not Detected; U Opiates Screen DETECTED; U Oxycodone Screen Not Detected; U Phencyclidine Screen Not Detected
[2024-05-30 01:34] LABS: Appearance, Urine Clear (Clear); Color, Urine Yellow (P-Yellow)
[2024-05-30] MEDS ORDERED: NS 1,000 ML IV SCH (02:00)
[2024-05-30 02:46] LABS: Base Excess Venous 9.2 mmol/L; Bicarbonate Venous 30.4 mmol/L (24.0-30.0); PCO2 Venous 55.5 mmHg (38-42)
[2024-05-30] MEDS ORDERED: Insulin Regular 100 UNIT/ML 10ML Vial SC SCH (06:00)
[2024-05-30 06:42] LABS: BASOPHILS ABSOLUTE AUTO 0.07 K/mm3 (0.00-0.23); BASOPHILS PERCENT AUTO 1 % (0-2); EOSINOPHILS ABSOLUTE AUTO 0.17 K/mm3 (0.00-0.68); EOSINOPHILS PERCENT AUTO 2 % (0-6); Hematocrit 46.5 % (33.0-51.0); Hemoglobin 15.4 g/dL (11.5-16.0); IMMATURE GRAN ABSOLUTE AUTO 0.02 K/mm3 (0.00-0.10); IMMATURE GRAN PERCENT AUTO 0 % (0-1); LYMPHOCYTES ABSOLUTE AUTO 1.94 K/mm3 (0.84-5.20); LYMPHOCYTES PERCENT AUTO 23 % (21-46); MONOCYTES ABSOLUTE AUTO 0.88 K/mm3 (0.16-1.47); MONOCYTES PERCENT AUTO 11 % (4-13); Mean Corpuscular HGB 30.8 pg (26.0-34.0); Mean Corpuscular HGB Conc 33.1 g/dL (31.5-36.5); Mean Corpuscular Volume 93 fL (80-100); Mean Platelet Volume 10.6 fL (9.1-12.4); NEUTROPHILS ABSOLUTE AUTO 5.32 K/mm3 (1.96-9.15); NEUTROPHILS PERCENT AUTO 63 % (41-73); Platelet Count 160 K/mm3 (150-400); RDW Coefficient Variation 12.7 % (11.7-14.2); RDW Standard Deviation 43.4 fL (35.1-46.3)
[2024-05-30 07:21] LABS: Albumin/Globulin Ratio 0.7 (0.8-1.8); Bilirubin, Total 0.7 mg/dL (0.1-1.0); Bun/Creatinine Ratio 28.9 (12.0-20.0); Calcium, Blood 9.2 mg/dL (8.5-10.1); Creatinine, Blood 0.62 mg/dL (0.40-1.00); Globulin, Blood 4.2 g/dL (2.2-4.0); Potassium, Blood 3.8 mmol/L (3.5-5.5); Total Protein, Blood 7.2 g/dL (6.4-8.2)
[2024-05-30] MEDS ORDERED: DULO30 PO ×2 (07:58)
[2024-05-30] MEDS ORDERED: JARDIANCE10 MG PO ×2 (07:58)
[2024-05-30] MEDS ORDERED: GABA300 PO ×2 (08:01)
[2024-05-30] MEDS ORDERED: BISA10S PR ×2 (08:01)
[2024-05-30] MEDS ORDERED: HYDR1TAB94 PO ×2 (08:02)
[2024-05-30] MEDS ORDERED: Milk Of Ma400 MG/5 M PO ×2 (08:03)
[2024-05-30] MEDS ORDERED: Enoxaparin 40 MG/0.4 ML SYR SC SCH (09:00)
[2024-05-30] MEDS ORDERED: OLANZapine 10 MG Vial IM ONE (15:45)
[2024-05-30 16:34] VITALS: BP 145/88
[2024-05-30] MEDS ORDERED: TRULICITY4.5 MG/0.5 SC ×2 (17:51)
--- NOTE | 2024-05-30 19:24 | NUR ---
PATIENT TO THE FLOOR AT 1530, PATIENT TRANSFERRED FROM [facility] WITH [facility], ALL INTERVENTION GIVEN TO PATIENT TO BE AWARE WE WERE TRANSFERING TO ANOTHER BED, ONCE PATIENT WAS IN HOSPITAL BED SHE BECAME NILS, HITTING, SWINGING, KICKING, BITING AND CURSING AT STAFF. BUSINESS OPERATIONS COORDINATOR NOTIFIED RESTRAINTS PLACED, PATIEINT CONTINUED TO FIGHT AND ESCAPE FROM SOFT RESTRAINTS, HARD CUFFS APPLIED TO WRIST, PATIENT ALERT AND OREINTED TO SELF AND SON ONLY, NON DIRECTABLE, REFUSED VITAL SIGNS AND CARE. DAWOOD HALEY CAME AND WAS HELPFUL WITH PATIENT, RESTRAINTS AND VIOLENCE DISCUSSED/INFORMED TO SON. PATIENT FAILED BEDSIDE SWALLOW, NPO, REPORTED TO PM RN, BED ALARM ON
[2024-05-30 19:53] VITALS: BP 154/91
--- NOTE | 2024-05-30 22:00 | NUR ---
PATIENT IN RESTRAINT AND NON-VERBAL AT THIS TIME. NS RESTARTED @ 75 mL/HR X TWO BAGS. 1 OF 2 INFUSING. WCTM.
[2024-05-31 00:38] VITALS: BP 181/92
[2024-05-31 04:22] VITALS: BP 144/107
--- NOTE | 2024-05-31 05:16 | NUR ---
SHIFT SUMMARY PATIENT HAD NO ACUTE CHANGES. ALERT TO SELF, NON-VERBAL, NPO, AND BEDREST. WRIST RESTRAINTS PER ORDER. PIV INTACT. NS INFUSING @ 75mL/HR TWO OF TWO BAGS. CBG 118. NO S/SX OF CHEST PAIN, SOB, AND N/V. VSS/AFEBRILE. TELE MONITOR AFIB 82, BBB. CALL LIGHT IN REACH. BED IN LOWEST POSITION. WILL CONTINUE TOMONITOR UNTIL DAY SHIFT NURSE ASSUMES CARE.
--- NOTE | 2024-05-31 06:19 | NUR ---
PATIENT ABLE TO NOW VERBALIZE NAME AND FOR LAB. ALSO HOW SHE IS FEELING. NON-VERBAL REST OF SHIFT. WCTM.
[2024-05-31 06:43] LABS: BASOPHILS ABSOLUTE AUTO 0.07 K/mm3 (0.00-0.23); BASOPHILS PERCENT AUTO 1 % (0-2); EOSINOPHILS ABSOLUTE AUTO 0.21 K/mm3 (0.00-0.68); EOSINOPHILS PERCENT AUTO 2 % (0-6); Hematocrit 49.5 % (33.0-51.0); IMMATURE GRAN ABSOLUTE AUTO 0.03 K/mm3 (0.00-0.10); IMMATURE GRAN PERCENT AUTO 0 % (0-1); LYMPHOCYTES ABSOLUTE AUTO 1.82 K/mm3 (0.84-5.20); LYMPHOCYTES PERCENT AUTO 20 % (21-46); MONOCYTES ABSOLUTE AUTO 0.88 K/mm3 (0.16-1.47); MONOCYTES PERCENT AUTO 10 % (4-13); Mean Corpuscular HGB 30.4 pg (26.0-34.0); Mean Corpuscular HGB Conc 32.3 g/dL (31.5-36.5); Mean Corpuscular Volume 94 fL (80-100); Mean Platelet Volume 11.6 fL (9.1-12.4); NEUTROPHILS ABSOLUTE AUTO 6.13 K/mm3 (1.96-9.15); NEUTROPHILS PERCENT AUTO 67 % (41-73); Platelet Count 162 K/mm3 (150-400); RDW Coefficient Variation 12.7 % (11.7-14.2); RDW Standard Deviation 43.9 fL (35.1-46.3); Red Blood Cell Count 5.27 M/mm3 (3.80-5.20); White Blood Cell Count 9.14 K/mm3 (4.00-11.30)
[2024-05-31 07:53] VITALS: BP 152/98
[2024-05-31 08:00] LABS: Bun/Creatinine Ratio 37.7 (12.0-20.0); Calcium, Blood 8.7 mg/dL (8.5-10.1); Creatinine, Blood 0.48 mg/dL (0.40-1.00); Potassium, Blood 4.4 mmol/L (3.5-5.5)
[2024-05-31 12:19] VITALS: BP 142/86
[2024-05-31] MEDS ORDERED: Insulin Human Lispro 100 Units/ML 3ML Syringe SC SCH (16:30)
[2024-05-31] MEDS ORDERED: QUEtiapine Fumarate 50 MG TAB PO ONE (16:30)
[2024-05-31] MEDS ORDERED: OLANZapine 10 MG Vial IM ONE (16:40)
[2024-05-31] MEDS ORDERED: Bisacodyl 10 MG Supp PR PRN (16:55)
[2024-05-31] MEDS ORDERED: Gabapentin 300 MG Cap PO PRN (16:55)
[2024-05-31] MEDS ORDERED: Carvedilol 3.125 MG Tab PO SCH (17:00)
[2024-05-31 18:17] LABS: Campylobacter Sp Not Detected (NOT DETECT); Plesiomonas Shigelloides Not Detected (NOT DETECT); Salmonella Sp Not Detected (NOT DETECT); Shigella/Enteroin E. coli-EIEC Detected (NOT DETECT)
[2024-05-31 18:18] LABS: Adenovirus F 40/41 Not Detected (NOT DETECT); Astrovirus Not Detected (NOT DETECT); Cryptosporidium Not Detected (NOT DETECT); Cyclospora Cayetanensis Not Detected (NOT DETECT); E. Coli O157 Not Detected (NOT DETECT); Entamoeba Histolytica Not Detected (NOT DETECT); Enteroaggregative E. coli-EAEC Not Detected (NOT DETECT); Enteropathogenic E. coli-EPEC Not Detected (NOT DETECT); Enterotoxigenic E. coli-ETEC Not Detected (NOT DETECT); Giardia Lamblia Not Detected (NOT DETECT); Norovirus GI/GII Not Detected (NOT DETECT); Rotavirus A Not Detected (NOT DETECT); Sapovirus Not Detected (NOT DETECT); Shiga Toxin-prod E. coli-STEC Not Detected (NOT DETECT); Vibrio Cholerae Not Detected (NOT DETECT); Vibrio Sp Not Detected (NOT DETECT); Yersinia Enterocolitica Not Detected (NOT DETECT)
--- NOTE | 2024-05-31 18:44 | NUR ---
SUMMARY PATIENT WAS A/O X2 THIS MORNING, SPEECH SLURRED WHEN MOUTH IS DRY. SPEECH THERAPY EVALUATED, STARTED ON EASY TO CHEW DIET DYSPHAGIA PRECAUTIONS AND ASSISTANCE WITH MEALS. AROUND 1600 PATIENT STARTED TO BECOME MORE CONFUSED APPEARS TO BE SUNDOWNING OTHER NEURO S/S ARE WNL. NOTIFIED DR. VINES WHO ORDERED ORAL SEROQUEL BUT PATIENT IS TOO DEFENSIVE/PARANOID TO TAKE. IM 5 MG ZYPREXA GIVEN X1 WHICH DID CALM PATIENT DOWN SLIGHTLY. SON WAS NOTIFIED AND CAME IN TO SIT WITH PATIENT FOR A WHILE BUT WILL NOT STAY. EDUCATED SON ON REASONING FOR CHEMICAL RESTRAINT VS. PHYSICAL RESTRAINT AND HE VERBALIZES UNDERSTANING AND IF PATIENT CONTINUES TO BE AGITATED/NONCOMPLIANT WITH STAFF THAT THE PHYSICAL RESTRAINTS MAY NEED TO BE PUT BACK ON. PATIENT REFUSED PM VITALS. WILL ALLOW PATIENT TO CALM DOWN BEFORE ATTEMPTING AGAIN.
[2024-05-31 19:13] VITALS: BP 167/99
[2024-05-31] MEDS ORDERED: Metoprolol Tartrate 1 MG/ML 5 ML VIAL IV ONE (20:00)
[2024-05-31] MEDS ORDERED: Apixaban 5 MG Tab PO SCH (21:00)
[2024-05-31] MEDS ORDERED: Ascorbic Acid 250 MG Chew PO SCH (21:00)
--- NOTE | 2024-05-31 21:04 | NUR ---
PATIENT EXTREMELY AGITATED HITTING, SPITTING, AND KICKING. HOSPITALIST DR BACH ORDERED BILATERAL TUFF RESTRAINTS. [facility].
--- NOTE | 2024-05-31 21:32 | NUR ---
PATIENT HR RATE AFIB 130-145 PER [employer] MIXER HELPER. HOSPITALIST DR BACH ORDERED IV LOPRESSOR 5 MG X ONE. HR DOWN TO 115-130. WCTM.
[2024-06-01 00:58] VITALS: BP 187/103
[2024-06-01] MEDS ORDERED: Metoprolol Tartrate 1 MG/ML 5 ML VIAL IV PRN (01:50)
--- NOTE | 2024-06-01 02:28 | NUR ---
TELE MONITOR HR UP TO 170. HOSPITALIST DR LERMA ORDERED IV METOPROLOL 5 MG FOR HR >120 Q6 PRN. HR RECHECKED RUNNING AFIB 98-110. PATIENT SLEEPING. WCTM.
[2024-06-01 02:37] VITALS: BP 164/80
--- NOTE | 2024-06-01 04:08 | NUR ---
SHIFT SUMMARY PATIENT HAD ELEVATED HR RATE X TWO (SEE NOTES). AGITATED, HITTING, KICKING, AND SPITTING. ORDERED FOR BILATERAL WRIST RESTRAINTS. ALERT TO SELF WITH NON SENSICAL SPEECH. BEDREST. CBG 222. NO S/SX OF CHEST PAIN, SOB, AND N/V. HYPERTENSIVE REFUSED HTN MEDS ON DAY SHIFT. CALL LIGHT IN REACH. BED IN LOWEST POSITION. WILL CONTINUE TO MONITOR UNTIL DAY SHIFT NURSE ASSUMES CARE.
[2024-06-01 05:25] LABS: BASOPHILS ABSOLUTE AUTO 0.06 K/mm3 (0.00-0.23); BASOPHILS PERCENT AUTO 0 % (0-2); EOSINOPHILS ABSOLUTE AUTO 0.03 K/mm3 (0.00-0.68); EOSINOPHILS PERCENT AUTO 0 % (0-6); Hematocrit 45.9 % (33.0-51.0); Hemoglobin 15.6 g/dL (11.5-16.0); IMMATURE GRAN ABSOLUTE AUTO 0.04 K/mm3 (0.00-0.10); IMMATURE GRAN PERCENT AUTO 0 % (0-1); LYMPHOCYTES ABSOLUTE AUTO 1.44 K/mm3 (0.84-5.20); LYMPHOCYTES PERCENT AUTO 10 % (21-46); MONOCYTES ABSOLUTE AUTO 1.18 K/mm3 (0.16-1.47); MONOCYTES PERCENT AUTO 8 % (4-13); Mean Corpuscular HGB 31.1 pg (26.0-34.0); Mean Corpuscular Volume 92 fL (80-100); Mean Platelet Volume 11.1 fL (9.1-12.4); NEUTROPHILS ABSOLUTE AUTO 11.73 K/mm3 (1.96-9.15); NEUTROPHILS PERCENT AUTO 81 % (41-73); Platelet Count 211 K/mm3 (150-400); RDW Coefficient Variation 12.6 % (11.7-14.2); RDW Standard Deviation 42.5 fL (35.1-46.3); Red Blood Cell Count 5.01 M/mm3 (3.80-5.20); White Blood Cell Count 14.48 K/mm3 (4.00-11.30)
[2024-06-01 06:11] LABS: Bun/Creatinine Ratio 28.8 (12.0-20.0); Calcium, Blood 9.2 mg/dL (8.5-10.1); Creatinine, Blood 0.66 mg/dL (0.40-1.00); Potassium, Blood 4.3 mmol/L (3.5-5.5)
[2024-06-01] MEDS ORDERED: Cholecalciferol 1000 Unit Tablet (=25MCG) PO SCH (09:00)
[2024-06-01] MEDS ORDERED: CefTRIAXone Sodium 1,000 MG in NS 100 ML IV SCH (09:00)
[2024-06-01] MEDS ORDERED: Lactobacil 2-S.Thermo-Bifido 1 1 Cap PO SCH (09:00)
[2024-06-01 09:09] VITALS: BP 154/93
--- NOTE | 2024-06-01 12:12 | NUR ---
PATIENT SLEEPING. THIS RN TO BEDSIDE ATTEMPTING TO PLACE IV. PATIENT STATED SHE DID NOT WANT AN IV. ASKED TWO MORE TIMES TO VERIFY. DR. VINES NOTIFIED AND WILL CHANGE ABx TO ORAL.
[2024-06-01] MEDS ORDERED: Ciprofloxacin 500 MG Tab PO SCH (13:00)
[2024-06-01 16:28] VITALS: BP 134/88
[2024-06-01] MEDS ORDERED: OLANZapine 5 MG Tab PO PRN (16:30)
[2024-06-01 19:37] VITALS: BP 156/89
--- NOTE | 2024-06-01 19:42 | NUR ---
END OF SHIFT SUMMARY: A&Ox2-3. UNCOOPERATIVE c CARE AND CONFUSED, BUT NOT AGGRESSIVE WITH STAFF. DID HAVE C/O BACK AND NECK PAIN. GIVEN PRN GABAPENTIN 600MG AND SLEPT MAJORITY OF THE DAY; SON WAS HAPPY WITH THIS BECAUSE SHE HAS NOT HAS SLEPT IN SEVERAL DAYS. MEDS WHOLE c APPLESAUCE. SPOKE WITH SON WHO AGREED WITH PALLIATIVE CONSULT AND WOULD LIKE TO DISCUSS TAKING PATIENT HOME INSTEAD OF [place], POSSIBLY WITH HOSPICE. IV LEAKING AND REMOVED; PT REFUSED INSERTION OF NEW IV. ABx AND MEDS CHANGED TO P.O. BED IN LOWEST POSITION, CALL LIGHT WITHIN REACH, ALL NEEDS MET. REPORT TO ONCOMING NURSE.
[2024-06-01] MEDS ORDERED: Insulin Glargine-Yfgn 100 Unit/mL 3 ML SYR SC SCH (21:00)
[2024-06-02 00:31] VITALS: BP 141/89
[2024-06-02 03:53] VITALS: BP 147/84
--- NOTE | 2024-06-02 04:07 | NUR ---
SHIFT SUMMARY PATIENT SOMNOLENCE THROUGHOUT SHIFT. PO MEDICATION HELD. ALERT TO SELF AND BEDREST. CBG 170. VSS/AFEBRILE NO S/SX OF CHEST PAIN, SOB, AND N/V. VSS/AFEBRILE. NO IV ACCESS. SLEPT T/O SHIFT. CALL LIGHT IN REACH. BED IN LOWEST POSITION. WILL CONTINUE TO MONITOR UNTIL DAY SHIFT NURSE ASSUMES CARE.
[2024-06-02 05:37] LABS: BASOPHILS ABSOLUTE AUTO 0.09 K/mm3 (0.00-0.23); BASOPHILS PERCENT AUTO 1 % (0-2); EOSINOPHILS ABSOLUTE AUTO 0.07 K/mm3 (0.00-0.68); EOSINOPHILS PERCENT AUTO 0 % (0-6); Hematocrit 47.5 % (33.0-51.0); Hemoglobin 16.3 g/dL (11.5-16.0); IMMATURE GRAN ABSOLUTE AUTO 0.09 K/mm3 (0.00-0.10); IMMATURE GRAN PERCENT AUTO 1 % (0-1); LYMPHOCYTES ABSOLUTE AUTO 1.64 K/mm3 (0.84-5.20); LYMPHOCYTES PERCENT AUTO 9 % (21-46); MONOCYTES ABSOLUTE AUTO 1.19 K/mm3 (0.16-1.47); MONOCYTES PERCENT AUTO 7 % (4-13); Mean Corpuscular HGB 31.3 pg (26.0-34.0); Mean Corpuscular HGB Conc 34.3 g/dL (31.5-36.5); Mean Corpuscular Volume 91 fL (80-100); Mean Platelet Volume 10.8 fL (9.1-12.4); NEUTROPHILS ABSOLUTE AUTO 14.35 K/mm3 (1.96-9.15); NEUTROPHILS PERCENT AUTO 82 % (41-73); Platelet Count 193 K/mm3 (150-400); RDW Coefficient Variation 12.6 % (11.7-14.2); Red Blood Cell Count 5.21 M/mm3 (3.80-5.20); White Blood Cell Count 17.43 K/mm3 (4.00-11.30)
[2024-06-02 06:02] LABS: Bun/Creatinine Ratio 30.2 (12.0-20.0); Calcium, Blood 9.2 mg/dL (8.5-10.1); Creatinine, Blood 0.63 mg/dL (0.40-1.00)
[2024-06-02 07:55] VITALS: BP 146/92
--- NOTE | 2024-06-02 11:39 | NUR ---
ASSUMED CARE OF PATIENT. SLEEPING DURING SHIFT-CHANGE REPORT. HAS BEEN SLEEPING ALL NIGHT. BRIEF DRY.
[2024-06-02 12:03] VITALS: BP 120/86
[2024-06-02 16:03] VITALS: BP 125/78
[2024-06-02 19:43] VITALS: BP 117/78
--- NOTE | 2024-06-02 20:33 | NUR ---
END OF SHIFT SUMMARY: A&Ox3-4. MORE PLEASANT AND COOPERATIVE c CARE THE DAY WHEN ON. SON AT BEDSIDE MUCH OF DAY. x3 INCONTINENT LOOSE STOOLS TODAY. 1PA c FWW TO BSC TO CHANGE ATTENDS AND CLEAN UP. SON ACTIVE IN CARE HE IS UNSURE IF PATIENT WILL BE GOING HOME WITH HIM OR BACK TO SNF. MEDICATED PRN APAP C/O NECK AND BACK PAIN. BED IN LOWEST POSITION, CALL LIGHT WITHIN REACH, ALL NEEDS MET. REPORT TO ONCOMING NURSE.
[2024-06-03 04:31] VITALS: BP 137/83
[2024-06-03 05:01] LABS: BASOPHILS ABSOLUTE AUTO 0.06 K/mm3 (0.00-0.23); BASOPHILS PERCENT AUTO 1 % (0-2); EOSINOPHILS ABSOLUTE AUTO 0.21 K/mm3 (0.00-0.68); EOSINOPHILS PERCENT AUTO 2 % (0-6); Hematocrit 45.4 % (33.0-51.0); IMMATURE GRAN ABSOLUTE AUTO 0.06 K/mm3 (0.00-0.10); IMMATURE GRAN PERCENT AUTO 1 % (0-1); LYMPHOCYTES PERCENT AUTO 21 % (21-46); MONOCYTES ABSOLUTE AUTO 0.91 K/mm3 (0.16-1.47); MONOCYTES PERCENT AUTO 9 % (4-13); Mean Corpuscular HGB 30.6 pg (26.0-34.0); Mean Corpuscular Volume 93 fL (80-100); Mean Platelet Volume 10.9 fL (9.1-12.4); NEUTROPHILS ABSOLUTE AUTO 7.27 K/mm3 (1.96-9.15); NEUTROPHILS PERCENT AUTO 68 % (41-73); Platelet Count 207 K/mm3 (150-400); RDW Coefficient Variation 12.8 % (11.7-14.2); RDW Standard Deviation 43.6 fL (35.1-46.3); White Blood Cell Count 10.71 K/mm3 (4.00-11.30)
[2024-06-03 05:18] LABS: Bun/Creatinine Ratio 39.6 (12.0-20.0); Calcium, Blood 9.1 mg/dL (8.5-10.1); Creatinine, Blood 0.83 mg/dL (0.40-1.00); Potassium, Blood 4.3 mmol/L (3.5-5.5)
--- NOTE | 2024-06-03 06:04 | NUR ---
SUMMARY: PT A/OX3-4 AND SPECIFIES NEEDS WHEN STAFF IN ROOM BUT IS MILDLY FORGETFUL W/BED ALARM ON FOR FALL RISK. SENSORIUM CONT'S TO IMPROVE AND SHE'S BEEN PLEASANT AND COOPERATIVE W/CARE T/O NOCTE. PT IS CONTINENT/INCONTINENT W/1PA AND FWW REQUIRED TO BSC, ATTENDS CHANGED PRN. NO LOOSE STOOLS OBSERVED THIS SHIFT. SHE'S DENIED PAIN/COMPLAINTS. VSS/AFEBRILE, NO ACUTE CHANGES. PROBABLE SNF NEEDED UPON D/C. WCTM AND REPORT TO DAY RN.
[2024-06-03 07:09] VITALS: BP 136/85
[2024-06-03] MEDS ORDERED: CIPRO500 M1 PO ×2 (12:06)
[2024-06-03] MEDS ORDERED: VISBIOME 112.51 EACH PO ×2 (12:06)
--- NOTE | 2024-06-03 15:57 | NUR ---
DISCHARGE SUMMARY PATIENT PICKED UP AT 1545 TO GO TO [facility]. NO IV TO REMOVE. SON SUDHA BROUGHT IN CLOTHES AND IS AWARE OF DISCHARGE. REPROT CALLED TO JANEL AT [facility]. PATIENT HAD NO BELONGINGS IN ROOM, SON MUST HAVE TAKEN HOME. NO NEW QUESTIONS OR CONCERNS FROM PATIENT PRIOR TO D/C. TRANPORT VIA WHEELCHAIR.
== END 2024-06-03 16:11 | DRG 92 ==
LOC: ER 21:33 → ERHOLD 21:34 → MEDS 05-30 15:27 → ENPENDDIS 06-03 12:41 → MEDS 06-03 16:11
PROVIDERS: Emergency Medicine; Family Medicine; Internal Medicine; ADMIT Student in an Organized Health Care Education/Training Program
DX: G92.8 Other toxic encephalopathy (principal); E87.3 Alkalosis; I69.351 Hemiplegia and hemiparesis following cerebral infarction affecting right dominant side; I48.92 Unspecified atrial flutter; F03.918 Unspecified dementia, unspecified severity, with other behavioral disturbance; Z66 Do not resuscitate; I48.0 Paroxysmal atrial fibrillation; E03.9 Hypothyroidism, unspecified; I10 Essential (primary) hypertension; E11.40 Type 2 diabetes mellitus with diabetic neuropathy, unspecified; A03.9 Shigellosis, unspecified; E86.0 Dehydration; R06.4 Hyperventilation; R29.6 Repeated falls; Z90.49 Acquired absence of other specified parts of digestive tract; Z79.899 Other long term (current) drug therapy; Z79.891 Long term (current) use of opiate analgesic; Z79.4 Long term (current) use of insulin; Z79.01 Long term (current) use of anticoagulants; Z85.038 Personal history of other malignant neoplasm of large intestine; I69.320 Aphasia following cerebral infarction; Z95.828 Presence of other vascular implants and grafts; Z28.21 Immunization not carried out because of patient refusal
CPT/HCPCS: 36415; 70450; 70551; 71045; 80048; 80053; 81003; 82803; 82947; 83735; 84439; 84443; 85025; 87507; 92526; 92610; 93005; 93010; 96372; 96374; 96376; 97161; 97165; 97530; 99285-25; A9270; G0378; J0696; J1650; J1815; J7030; P9612

== ENCOUNTER 2024-06-13 12:45 | Emergency (ER) | payer MEDICARE ==
[~2024-06-13] VITALS: Ht 167.6 cm; Wt 68.0 kg
[~2024-06-13 12:45] MED LIST changes: +BISA10S PR; +CIPRO500 M1 PO; +DULO30 PO; +JARDIANCE10 MG PO; +Milk Of Ma400 MG/5 M PO; +TRULICITY4.5 MG/0.5 SC; +VISBIOME 112.51 EACH PO
[2024-06-13 13:44] LABS: BASOPHILS ABSOLUTE AUTO 0.05 K/mm3 (0.00-0.23); BASOPHILS PERCENT AUTO 1 % (0-2); EOSINOPHILS PERCENT AUTO 1 % (0-6); Hematocrit 40.4 % (33.0-51.0); Hemoglobin 13.3 g/dL (11.5-16.0); IMMATURE GRAN ABSOLUTE AUTO 0.03 K/mm3 (0.00-0.10); IMMATURE GRAN PERCENT AUTO 0 % (0-1); LYMPHOCYTES PERCENT AUTO 26 % (21-46); MONOCYTES ABSOLUTE AUTO 0.59 K/mm3 (0.16-1.47); MONOCYTES PERCENT AUTO 7 % (4-13); Mean Corpuscular HGB 31.2 pg (26.0-34.0); Mean Corpuscular HGB Conc 32.9 g/dL (31.5-36.5); Mean Corpuscular Volume 95 fL (80-100); Mean Platelet Volume 10.7 fL (9.1-12.4); NEUTROPHILS ABSOLUTE AUTO 5.18 K/mm3 (1.96-9.15); NEUTROPHILS PERCENT AUTO 64 % (41-73); Platelet Count 221 K/mm3 (150-400); RDW Coefficient Variation 12.9 % (11.7-14.2); RDW Standard Deviation 44.8 fL (35.1-46.3); Red Blood Cell Count 4.26 M/mm3 (3.80-5.20); White Blood Cell Count 8.05 K/mm3 (4.00-11.30)
[2024-06-13 14:15] LABS: Alanine Aminotransfer (ALT/SGP 17 U/L (12-78); Albumin, Blood 2.6 g/dL (3.4-5.0); Albumin/Globulin Ratio 0.7 (0.8-1.8); Alk Phos 74 U/L (50-136); Anion Gap 4 mmol/L (3-11); Aspartate Aminotrans (AST/SGOT 19 U/L (12-37); Bilirubin, Total 0.4 mg/dL (0.1-1.0); Blood Urea Nitrogen 14 mg/dL (8-24); Bun/Creatinine Ratio 26.8 (12.0-20.0); CO2, Blood 32 mmol/L (21-32); Calcium, Blood 8.3 mg/dL (8.5-10.1); Chloride, Blood 108 mmol/L (98-108); Creatinine, Blood 0.52 mg/dL (0.40-1.00); Ethanol (Alcohol), Blood, Med <3 mg/dL; Globulin, Blood 3.5 g/dL (2.2-4.0); Glomerular Filtration Rate 90 (60-); Glucose, Blood 86 mg/dL (70-99); Potassium, Blood 4.3 mmol/L (3.5-5.5); Sodium, Blood 140 mmol/L (136-145); Total Protein, Blood 6.1 g/dL (6.4-8.2)
[2024-06-13 15:52] VITALS: BP 136/88
== END 2024-06-13 16:30 ==
LOC: ER 12:45
PROVIDERS: Student in an Organized Health Care Education/Training Program
DX: Z13.30 Encounter for screening examination for mental health and behavioral disorders, unspecified (principal); E11.40 Type 2 diabetes mellitus with diabetic neuropathy, unspecified; I10 Essential (primary) hypertension; Z86.73 Personal history of transient ischemic attack (TIA), and cerebral infarction without residual deficits; Z79.4 Long term (current) use of insulin; Z79.899 Other long term (current) drug therapy; Z91.048 Other nonmedicinal substance allergy status
CPT/HCPCS: 70450; 80053; 80320; 85025; 93005; 93010; 99285-25